=== PATIENT | female | born 1945 | race Caucasian/White ===

== ENCOUNTER 2018-08-17 02:22 | Emergency (ER) | payer MEDICARE, BC, MEDICAID ==
--- NOTE | 2018-08-17 03:14 | EDM.PDOC ---
ED HPI GENERAL MEDICAL PROBLEM - General Chief Complaint: Chest Pain Stated Complaint: chest pain Time Seen by Provider: 08/17/18 02:56 Source of Information: Reports: Patient History Limitations: Reports: No Limitations - History of Present Illness INITIAL COMMENTS - FREE TEXT/NARRATIVE: Patient presents with intermittent chest pain over the last 8+ hours. States was sleeping in her recliner at [facility] when pain awoke her. Pain is located across chest and upper back and radiated down her left arm. She states she had this earlier in the day but didn't alert nursing staff. Had the pain at midnight, was given TUMS and that helped for a short time. Again occurred 2 hours later. Blood pressure elevated at the home, here was normal on admission. Also notes midepigastric discomfort. She reports that she did have to take a week of Lasix due to edema in her legs, that is now improved. Patient denies shortness of breath at present but admits when she had stronger pains, "it took my breath away". No diaphoresis. Onset: Sudden Duration: Waxing/Waning Location: Reports: Chest Quality: Reports: Sharp, Stabbing Severity: Moderate (now improved after the tylenol and nitro) Improves with: Reports: Medication Associated Symptoms: Reports: Chest Pain, Shortness of Breath. Denies: Cough, Diaphoresis, Fever/Chills, Loss of Appetite, Malaise, Nausea/Vomiting, Weakness Treatments DISABILITIES SERVICES OFFICER: Reports: Aspirin, Nitroglycerin Chest Pain Score (Numeric/FACES): 5 - Related Data Allergies Allergy/AdvReac Type Severity Reaction Status Date / Time acetazolamide Allergy Cannot Verified 08/17/18 02:56 [From Diamox Sequels] Remember benzalkonium chloride Allergy Cannot Verified 08/17/18 02:56 [From Travatan] Remember Penicillins Allergy Cannot Verified 08/17/18 02:56 Remember quetiapine fumarate Allergy Cannot Verified 08/17/18 02:56 [From Seroquel] Remember sulfamethoxazole Allergy Cannot Verified 08/17/18 02:56 Remember travoprost [From Travatan] Allergy Cannot Verified 08/17/18 02:56 Remember trimethoprim Allergy Cannot Verified 08/17/18 02:56 Remember Home Meds: Home Meds ARIPiprazole [Abilify] 20 mg PO BEDTIME 07/20/13 [History] Acetaminophen [Tylenol Arthritis Pain] 650 mg PO Q6H PRN 07/20/13 [History] Ferrous Sulfate 325 mg PO DAILY 07/20/13 [History] Levothyroxine 150 mcg PO DAILY 07/20/13 [History] Polyethylene Glycol 3350 [MiraLAX] 17 gm PO Q48H 07/20/13 [History] buPROPion HCl [buPROPion SR] 300 mg PO BID 07/20/13 [History] Calcium Carbonate [Tums] 1,000 mg PO QID PRN 02/26/14 [History] Sennosides/Docusate Sodium [Stool Softener-Laxative] 1 tab PO DAILY 02/26/14 [ History] lamoTRIgine [Lamictal] 200 mg PO DAILY 02/26/14 [History] ALPRAZolam [Alprazolam] 0.5 mg PO QID 08/17/18 [History] Acetaminophen [Tylenol Extra Strength] 500 mg PO BID 08/17/18 [History] Carboxymethylcellulose Sodium [Refresh Tears 0.5%] 1 drop EYEBOTH DAILY [History] Clindamycin HCl 600 mg PO ASDIRECTED PRN MDD prior to dental procedures [History] Cyanocobalamin (Vitamin B-12) [Cyanocobalamin Injection] 1,000 mcg IM Q30D 08/17 [History] Dextran 70/Hypromellose [Artificial Tears] 1 - 2 drop EYEBOTH ASDIRECTED PRN [History] Fluticasone Propionate [Flovent] 50 mcg INH BEDTIME 08/17/18 [History] Isosorbide Mononitrate [Isosorbide Mononitrate ER] 30 mg PO DAILY 08/17/18 [ History] Losartan Potassium [Cozaar] 100 mg PO DAILY 08/17/18 [History] Magnesium Hydroxide [Milk of Magnesia] 30 ml PO DAILY PRN 08/17/18 [History] Menthol [Biofreeze] 1 applic TOP QID PRN 08/17/18 [History] Metoprolol Succinate [Toprol Xl] 100 mg PO DAILY 08/17/18 [History] Sodium Chloride 1 gm PO DAILY 08/17/18 [History] amLODIPine Besylate [Amlodipine Besylate] 10 mg PO DAILY 08/17/18 [History] buPROPion HCl [Wellbutrin Xl] 150 mg PO DAILY 08/17/18 [History] Past Medical History Other Genitourinary History: pt has a constant Arroyo - Infectious Disease History Infectious Disease History: Reports: MRSA Social & Family History - Living Situation & Occupation Living situation: Reports: Extended Care Facility Occupation: Disabled ED ROS GENERAL - Review of Systems Review Of Systems: See Below Constitutional: Denies: Fever, Chills, Malaise, Weakness, Decreased Appetite HEENT: Reports: Rhinitis. Denies: Ear Pain, Sinus Problem, Throat Pain Respiratory: Reports: Shortness of Breath. Denies: Wheezing, Cough Cardiovascular: Reports: Chest Pain, Edema. Denies: Lightheadedness Endocrine: Denies: Fatigue GI/Abdominal: Denies: Abdominal Pain, Nausea, Vomiting : Reports: Other (has catheter) Musculoskeletal: Reports: No Symptoms Skin: Reports: No Symptoms Neurological: Reports: No Symptoms ED EXAM, GENERAL - Physical Exam Exam: See Below Exam Limited By: No Limitations General Appearance: Alert, WD/WN, No Apparent Distress Ears: Normal External Exam, Normal TMs Nose: Normal Inspection, Normal Mucosa, No Blood Throat/Mouth: Normal Inspection, Normal Oropharynx Head: Normocephalic Neck: Normal Inspection, Supple, Non-Tender Respiratory/Chest: No Respiratory Distress, Lungs Clear, Normal Breath Sounds Cardiovascular: Regular Rate, Rhythm GI/Abdominal: Normal Bowel Sounds, Soft, Tender (midepigastric region) Extremities: Normal Inspection, Pedal Edema (1+ pitting edema in legs) Neurological: Alert, Oriented Skin Exam: Warm, Dry Course - Vital Signs Last Recorded V/S: Last Vital Signs Temp 99 F 08/17/18 09:39 Pulse 91 08/17/18 09:39 Resp 16 08/17/18 09:39 BP 170/70 H 08/17/18 09:39 Pulse Ox 97 08/17/18 09:39 - Orders/Labs/Meds Orders: Active Orders 24 hr Category Date Time Status EKG Documentation Completion [RC] STAT Care 08/17/18 02:23 Active Chest 1V Frontal [CR] Stat Exams 08/17/18 02:23 Taken Sodium Chloride 0.9% [Normal Saline] 1,000 ml Med 08/17/18 03:30 Active IV ASDIRECTED EKG 12 Lead [EK] Routine Ther 08/17/18 07:00 Ordered Medication Orders Sodium Chloride (Normal Saline) 1,000 mls @ 125 mls/hr IV ASDIRECTED BRITTNEY Last Admin: 08/17/18 04:05 Dose: 125 mls/hr Labs: Laboratory Tests 08/17/18 08/17/18 08/17/18 Range/Units 02:23 02:23 02:30 WBC 5.9 (5.0-10.0) 10^3/uL RBC 3.79 L (4.00-5.50) 10^6/uL Hgb 11.6 L (12.0-16.0) g/dL Hct 33.1 L (37.0-47.0) % MCV 87.3 (82.0-94.0) fL MCH 30.6 (27.0-32.0) pg MCHC 35.0 (33.0-38.0) g/dL RDW Coeff of [place] 12.9 (11.0-15.0) % Plt Count 288 (150-400) 10^3/uL Neut % (Auto) 73.6 (35-85) % Lymph % (Auto) 14.8 (10-55) % [place] % (Auto) 7.8 (0-16) % Eos % (Auto) 3.1 (0-5) % Baso % (Auto) 0.7 (0-3) % Neut # (Auto) 4.34 (1.80-7.00) 10^3/uL Lymph # (Auto) 0.87 L (1.00-4.80) 10^3/uL [place] # (Auto) 0.46 (0.00-0.80) 10^3/uL Eos # (Auto) 0.18 (0.00-0.45) 10^3/uL Baso # (Auto) 0.04 10^3/uL PT 9.7 (9.7-12.3) SEC INR 0.94 (0.92-1.18) Sodium 127 L (136-145) mEq/L Potassium 4.4 (3.5-5.0) mEq/L Chloride 90 L (98-106) mEq/L Carbon Dioxide 29 (21-32) mmol/L BUN 15 (7-18) mg/dL Creatinine 1.2 H (0.6-1.0) mg/dL Est Cr Clr Drug Dosing 41.81 mL/min Estimated GFR (MDRD) 44 L (>=60) mL/min Glucose 126 H (75-99) mg/dL Calcium 9.3 (8.4-10.1) mg/dL Lactate Dehydrogenase 143 (100-190) U/L Creatine Kinase 81 (21-215) U/L Troponin I < 0.017 (0.00-0.06) ng/mL NT-Pro-B Natriuret Pep 172 (0-1000) pg/mL 08/17/18 Range/Units 07:00 WBC (5.0-10.0) 10^3/uL RBC (4.00-5.50) 10^6/uL Hgb (12.0-16.0) g/dL Hct (37.0-47.0) % MCV (82.0-94.0) fL MCH (27.0-32.0) pg MCHC (33.0-38.0) g/dL RDW Coeff of [place] (11.0-15.0) % Plt Count (150-400) 10^3/uL Neut % (Auto) (35-85) % Lymph % (Auto) (10-55) % [place] % (Auto) (0-16) % Eos % (Auto) (0-5) % Baso % (Auto) (0-3) % Neut # (Auto) (1.80-7.00) 10^3/uL Lymph # (Auto) (1.00-4.80) 10^3/uL [place] # (Auto) (0.00-0.80) 10^3/uL Eos # (Auto) (0.00-0.45) 10^3/uL Baso # (Auto) 10^3/uL PT (9.7-12.3) SEC INR (0.92-1.18) Sodium 127 L (136-145) mEq/L Potassium 4.8 (3.5-5.0) mEq/L Chloride 92 L (98-106) mEq/L Carbon Dioxide 28 (21-32) mmol/L BUN 12 (7-18) mg/dL Creatinine 1.1 H (0.6-1.0) mg/dL Est Cr Clr Drug Dosing 45.62 mL/min Estimated GFR (MDRD) 49 L (>=60) mL/min Glucose 118 H (75-99) mg/dL Calcium 8.9 (8.4-10.1) mg/dL Lactate Dehydrogenase (100-190) U/L Creatine Kinase (21-215) U/L Troponin I < 0.017 (0.00-0.06) ng/mL NT-Pro-B Natriuret Pep (0-1000) pg/mL Meds: Medications Generic Name Dose Route Start Last Admin Trade Name Jennifer PRN Reason Stop Dose Admin Sodium Chloride 1,000 mls @ 125 mls/hr 08/17/18 03:30 08/17/18 04:05 Normal Saline IV 125 mls/hr ASDIRECTED [facility] Administration - Re-Assessments/Exams Free Text/Narrative Re-Assessment/Exam: 08/17/18 03:26 Sodium low at 127 but all other labs stable. Will repeat troponin, sodium and EKG in 4 hours. 08/17/18 09:46 Labs, EKG unchanged. will discharge back to the assisted. Blood pressure higher now, needs am blood pressure meds, will have her get those on return to the assisted. Start Omeprazole 20 mg daily Departure - Departure Time of Disposition: 09:41 Disposition: Home, Self-Care 01 Condition: Good Clinical Impression: Atypical chest pain Forms: ED Department Discharge Additional Instructions: 1. Rest 2. Repeat BMP in 3 days 3. Start Omeprazole 20 mg daily 4. Needs AM meds 5. Follow up if ongoing concerns. - My Orders Last 24 Hours: My Active Orders 08/17/18 02:23 EKG Documentation Completion [RC] STAT Chest 1V Frontal [CR] Stat 08/17/18 03:30 Sodium Chloride 0.9% [Normal Saline] 1,000 ml IV ASDIRECTED 08/17/18 07:00 EKG 12 Lead [EK] Routine - Assessment/Plan Last 24 Hours: My Active Orders 08/17/18 02:23 EKG Documentation Completion [RC] STAT Chest 1V Frontal [CR] Stat 08/17/18 03:30 Sodium Chloride 0.9% [Normal Saline] 1,000 ml IV ASDIRECTED 08/17/18 07:00 EKG 12 Lead [EK] Routine
[2018-08-17 03:23] LABS: CHLORIDE,CL 90 mEq/L (98-106); SODIUM,NA 127 mEq/L (136-145)
[2018-08-17] MEDS ORDERED: Sodium Chloride 0.9% 1,000 ML IV SCH (03:30)
[2018-08-17 08:05] LABS: CHLORIDE,CL 92 mEq/L (98-106); SODIUM,NA 127 mEq/L (136-145)
[2018-08-17 09:39] VITALS: BP 170/70
== END 2018-08-17 10:12 | disposition home or self-care (01) ==
LOC: CC.ED 02:22
DX: R07.89 Other chest pain (principal); Z88.8 Allergy status to other drugs, medicaments and biological substances; Z79.899 Other long term (current) drug therapy; Z88.0 Allergy status to penicillin; Z88.2 Allergy status to sulfonamides
CPT/HCPCS: 36415; 71045; 80048; 82550; 83615; 83880; 84484; 85025; 85610; 93005; 96365; 96366; 99285-25; J7030

== ENCOUNTER 2019-01-03 02:08 | Observation (INO) | payer MEDICARE, BC, MEDICAID ==
[2019-01-03] MEDS ORDERED: Aspirin 81 MG Tab.Chew PO ONE (02:41)
[2019-01-03] MEDS ORDERED: Ondansetron 4 MG Tab.DIS PO ONE (02:47)
--- NOTE | 2019-01-03 02:50 | EDM.PDOC ---
ED HPI GENERAL MEDICAL PROBLEM - General Chief Complaint: Gastrointestinal Problem Stated Complaint: vomiting, epigastric pain, high BP Time Seen by Provider: 01/03/19 02:32 Source of Information: Reports: Patient History Limitations: Reports: No Limitations - History of Present Illness INITIAL COMMENTS - FREE TEXT/NARRATIVE: This patient is a 73 year old female that presents to the ER from the senior care. Patient reports that about 2 1/2 hour ago having chest pressure. She reports the pressure went into both arms, into her mid back, she became short of breath, nauseated, and then vomited 4 times. She reports that the vomiting has decreased the pressure in her chest and arms to a 6/10 pressure scale. Patient reports that she thinks it is acid reflux. Patient reports that she has had this pain before and had a stress test that was normal per patient. The patient has hx of HTN. I reviewed per previous stress test FROM august 29, 2018; That shows ST segment changes, but no ischemia. Onset: Today Onset Date: 01/03/19 Onset Time: 00:00 Duration: Hour(s): (2 1/2 hours), Improving Location: Reports: Chest, Abdomen Quality: Reports: Pressure Severity: Moderate Improves with: Reports: Other (vomiting) Associated Symptoms: Reports: Chest Pain, Nausea/Vomiting, Shortness of Breath. Denies: Confusion, Cough, cough w sputum, Diaphoresis, Fever/Chills, Headaches , Loss of Appetite, Malaise, Rash, Seizure, Syncope, Weakness Upper Epigastric Pain Score (Numeric/FACES): 6 - Related Data Allergies Allergy/AdvReac Type Severity Reaction Status Date / Time acetazolamide Allergy Cannot Verified 01/03/19 02:11 [From Diamox Sequels] Remember benzalkonium chloride Allergy Cannot Verified 01/03/19 02:11 [From Travatan] Remember Penicillins Allergy Cannot Verified 01/03/19 02:11 Remember quetiapine fumarate Allergy Cannot Verified 01/03/19 02:11 [From Seroquel] Remember sulfamethoxazole Allergy Cannot Verified 01/03/19 02:11 Remember travoprost [From Travatan] Allergy Cannot Verified 01/03/19 02:11 Remember trimethoprim Allergy Cannot Verified 01/03/19 02:11 Remember Septra tabs Allergy Cannot Uncoded 01/03/19 02:11 Remember Home Meds: Home Meds ARIPiprazole [Abilify] 20 mg PO BEDTIME 07/20/13 [History] Acetaminophen [Tylenol Arthritis Pain] 650 mg PO Q6H PRN 07/20/13 [History] Ferrous Sulfate 325 mg PO DAILY 07/20/13 [History] Levothyroxine 150 mcg PO DAILY 07/20/13 [History] Polyethylene Glycol 3350 [MiraLAX] 17 gm PO Q48H 07/20/13 [History] buPROPion HCl [buPROPion SR] 300 mg PO BID 07/20/13 [History] Calcium Carbonate [Tums] 1,000 mg PO QID PRN 02/26/14 [History] Sennosides/Docusate Sodium [Stool Softener-Laxative] 1 tab PO DAILY 02/26/14 [ History] lamoTRIgine [Lamictal] 200 mg PO DAILY 02/26/14 [History] ALPRAZolam [Alprazolam] 0.5 mg PO QID 08/17/18 [History] Acetaminophen [Tylenol Extra Strength] 500 mg PO BID 08/17/18 [History] Carboxymethylcellulose Sodium [Refresh Tears 0.5%] 1 drop EYEBOTH DAILY [History] Clindamycin HCl 600 mg PO ASDIRECTED PRN MDD prior to dental procedures [History] Cyanocobalamin (Vitamin B-12) [Cyanocobalamin Injection] 1,000 mcg IM Q30D 08/17 [History] Dextran 70/Hypromellose [Artificial Tears] 1 - 2 drop EYEBOTH ASDIRECTED PRN [History] Fluticasone Propionate [Flovent] 50 mcg INH BEDTIME 08/17/18 [History] Isosorbide Mononitrate [Isosorbide Mononitrate ER] 30 mg PO DAILY 08/17/18 [ History] Losartan Potassium [Cozaar] 100 mg PO DAILY 08/17/18 [History] Magnesium Hydroxide [Milk of Magnesia] 30 ml PO DAILY PRN 08/17/18 [History] Menthol [Biofreeze] 1 applic TOP QID PRN 08/17/18 [History] Metoprolol Succinate [Toprol Xl] 100 mg PO DAILY 08/17/18 [History] Sodium Chloride 1 gm PO DAILY 08/17/18 [History] amLODIPine Besylate [Amlodipine Besylate] 10 mg PO DAILY 08/17/18 [History] buPROPion HCl [Wellbutrin Xl] 150 mg PO DAILY 08/17/18 [History] Multivitamin with Iron [Multivitamins with Iron] 1 ea PO DAILY 08/28/18 [History ] Past Medical History HEENT History: Reports: Allergic Rhinitis, Glaucoma, Other (See Below) Other HEENT History: dry eye syndrome of bilateral lacrimal glands, bilateral vitreous degeneration Cardiovascular History: Reports: Afib, Blood Clots/VTE/DVT, Hypertension Gastrointestinal History: Reports: Chronic Constipation Genitourinary History: Reports: Other (See Below) Other Genitourinary History: pt has a constant Arroyo 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: Musculoskeletal History: Reports: Osteoarthritis Psychiatric History: Reports: Anxiety, Bipolar, Depression, Other (See Below) Other Psychiatric History: somatization disorder, personality disorder, social phobia, schizoaffective disorder, bipolar type Endocrine/Metabolic History: Reports: Diabetes, Type II, Hypothyroidism, Obesity /BMI 30+, Other (See Below) Other Endocrine/Metabolic History: syndrome of inappropriate secretion of antidiuretic hormone Hematologic History: Reports: Anemia, Iron Deficiency - Infectious Disease History Infectious Disease History: Reports: MRSA - Past Surgical History HEENT Surgical History: Reports: None Cardiovascular Surgical History: Reports: None GI Surgical History: Reports: None Endocrine Surgical History: Reports: None Musculoskeletal Surgical History: Reports: Knee Replacement Social & Family History - Family History Family Medical History: Noncontributory - Tobacco Use Smoking Status *Q: Never Smoker - Caffeine Use Caffeine Use: Reports: Coffee - Recreational Drug Use Recreational Drug Use: No - Living Situation & Occupation Living situation: Reports: Extended Care Facility Occupation: Disabled ED ROS GENERAL - Review of Systems Review Of Systems: See Below Constitutional: Reports: No Symptoms HEENT: Reports: No Symptoms Respiratory: Reports: Shortness of Breath. Denies: Wheezing, Pleuritic Chest Pain, Cough, Sputum, Hemoptysis Cardiovascular: Reports: Chest Pain. Denies: Dyspnea on Exertion, Edema, Lightheadedness, Palpitations, Syncope Endocrine: Reports: No Symptoms GI/Abdominal: Reports: Abdominal Pain, Nausea, Vomiting. Denies: Constipation, Diarrhea : Reports: No Symptoms Musculoskeletal: Reports: Back Pain Skin: Reports: No Symptoms Neurological: Reports: No Symptoms Psychiatric: Reports: No Symptoms Hematologic/Lymphatic: Reports: No Symptoms Immunologic: Reports: No Symptoms ED EXAM, GI/ABD - Physical Exam Exam: See Below Exam Limited By: No Limitations General Appearance: Alert, WD/WN, No Apparent Distress, Obese. No: Active Emesis Eyes: Bilateral: Normal Appearance Ears: Normal External Exam, Normal Canal, Hearing Grossly Normal, Normal TMs Nose: Normal Inspection, Normal Mucosa, No Blood Throat/Mouth: Normal Inspection, Normal Lips, Normal Teeth, Normal Gums, Normal Oropharynx, Normal Voice, No Airway Compromise Head: Atraumatic, Normocephalic Neck: Normal Inspection, Supple, Non-Tender, Full Range of Motion Respiratory/Chest: No Respiratory Distress, Lungs Clear, Normal Breath Sounds, No Accessory Muscle Use, Chest Non-Tender Cardiovascular: Normal Peripheral Pulses, Regular Rate, Rhythm, No Edema, No Gallop, No JVD, No Murmur, No Rub GI/Abdominal Exam: Normal Bowel Sounds, Soft, No Organomegaly, No Distention, No Abnormal Bruit, No Mass, Pelvis Stable, Tender (epigastric). No: Distended, Guarding, Rigid, Rebound, Mass (Female) Exam: Deferred Rectal (Female) Exam: Deferred Back Exam: Normal Inspection, Full Range of Motion. No: CVA Tenderness (L), CVA Tenderness (R) Extremities: Normal Inspection, Normal Range of Motion, Non-Tender, No Pedal Edema, Normal Capillary Refill Neurological: Alert, Oriented, Normal Cognition, Other (wheelchair chronic) Psychiatric: Normal Affect, Normal Mood Skin Exam: Warm, Dry, Intact, Normal Color, No Rash Lymphatic: No Adenopathy EKG INTERPRETATION EKG Date: 01/03/19 Time: 02:21 Rate (Beats/Min): 91 ST-T: Depressed QT: Prolonged Comparison: No Change (August 2018) Course - Vital Signs Last Recorded V/S: Last Vital Signs Temp 98.4 F 01/03/19 07:49 Pulse 83 01/03/19 07:49 Resp 18 01/03/19 07:49 BP 130/62 01/03/19 07:49 Pulse Ox 97 01/03/19 07:49 - Orders/Labs/Meds Orders: Active Orders 24 hr Category Date Time Status EKG Documentation Completion [RC] STAT Care 01/03/19 02:29 Active Abdomen Pelvis w Cont [CT] Stat Exams 01/03/19 07:59 Ordered Chest 1V Frontal [CR] Stat Exams 01/03/19 02:29 Taken Labs: Laboratory Tests 01/03/19 01/03/19 01/03/19 Range/Units 02:48 02:48 02:48 WBC 6.5 (5.0-10.0) 10^3/uL RBC 3.72 L (4.00-5.50) 10^6/uL Hgb 11.2 L (12.0-16.0) g/dL Hct 33.2 L (37.0-47.0) % MCV 89.2 (82.0-94.0) fL MCH 30.1 (27.0-32.0) pg MCHC 33.7 (33.0-38.0) g/dL RDW Coeff of [place] 13.3 (11.0-15.0) % Plt Count 299 (150-400) 10^3/uL Neut % (Auto) 81.3 (35-85) % Lymph % (Auto) 9.0 L (10-55) % [place] % (Auto) 6.3 (0-16) % Eos % (Auto) 2.8 (0-5) % Baso % (Auto) 0.6 (0-3) % Neut # (Auto) 5.26 (1.80-7.00) 10^3/uL Lymph # (Auto) 0.58 L (1.00-4.80) 10^3/uL [place] # (Auto) 0.41 (0.00-0.80) 10^3/uL Eos # (Auto) 0.18 (0.00-0.45) 10^3/uL Baso # (Auto) 0.04 10^3/uL PT 8.9 L (9.7-12.3) SEC INR 0.86 L (0.92-1.18) APTT 29.3 (23.2-32.3) SEC Sodium (136-145) mEq/L Potassium (3.5-5.0) mEq/L Chloride (98-106) mEq/L Carbon Dioxide (21-32) mmol/L BUN (7-18) mg/dL Creatinine (0.6-1.0) mg/dL Est Cr Clr Drug Dosing mL/min Estimated GFR (MDRD) (>=60) mL/min Glucose (75-99) mg/dL Calcium (8.4-10.1) mg/dL Total Bilirubin (0.0-1.0) mg/dL AST (15-37) U/L ALT (12-78) U/L Alkaline Phosphatase (46-116) U/L Lactate Dehydrogenase 134 (100-190) U/L Creatine Kinase 41 (21-215) U/L Troponin I < 0.017 (0.00-0.06) ng/mL NT-Pro-B Natriuret Pep (0-1000) pg/mL Total Protein (6.4-8.2) g/dL Albumin (3.4-5.0) g/dL Amylase (25-115) U/L Lipase (73-393) U/L 01/03/19 01/03/19 01/03/19 Range/Units 02:48 02:48 06:50 WBC (5.0-10.0) 10^3/uL RBC (4.00-5.50) 10^6/uL Hgb (12.0-16.0) g/dL Hct (37.0-47.0) % MCV (82.0-94.0) fL MCH (27.0-32.0) pg MCHC (33.0-38.0) g/dL RDW Coeff of [place] (11.0-15.0) % Plt Count (150-400) 10^3/uL Neut % (Auto) (35-85) % Lymph % (Auto) (10-55) % [place] % (Auto) (0-16) % Eos % (Auto) (0-5) % Baso % (Auto) (0-3) % Neut # (Auto) (1.80-7.00) 10^3/uL Lymph # (Auto) (1.00-4.80) 10^3/uL [place] # (Auto) (0.00-0.80) 10^3/uL Eos # (Auto) (0.00-0.45) 10^3/uL Baso # (Auto) 10^3/uL PT (9.7-12.3) SEC INR (0.92-1.18) APTT (23.2-32.3) SEC Sodium 129 L (136-145) mEq/L Potassium 4.4 (3.5-5.0) mEq/L Chloride 93 L (98-106) mEq/L Carbon Dioxide 26 (21-32) mmol/L BUN 17 (7-18) mg/dL Creatinine 1.0 (0.6-1.0) mg/dL Est Cr Clr Drug Dosing 49.45 mL/min Estimated GFR (MDRD) 55 L (>=60) mL/min Glucose 157 H D (75-99) mg/dL Calcium 9.3 (8.4-10.1) mg/dL Total Bilirubin 0.2 (0.0-1.0) mg/dL AST 9 L (15-37) U/L ALT 12 (12-78) U/L Alkaline Phosphatase 91 (46-116) U/L Lactate Dehydrogenase (100-190) U/L Creatine Kinase (21-215) U/L Troponin I 0.040 (0.00-0.06) ng/mL NT-Pro-B Natriuret Pep 145 (0-1000) pg/mL Total Protein 7.6 (6.4-8.2) g/dL Albumin 3.5 (3.4-5.0) g/dL Amylase 43 (25-115) U/L Lipase 172 (73-393) U/L Meds: Medications Discontinued Medications Generic Name Dose Route Start Last Admin Trade Name Freq PRN Reason Stop Dose Admin Aspirin 324 mg 01/03/19 02:41 01/03/19 02:53 Aspirin PO 01/03/19 02:42 324 mg ONETIME ONE Administration Al Hydroxide/Mg Hydroxide 30 0 ml 01/03/19 03:13 01/03/19 04:33 ml/ Lidocaine HCl 15 ml PO 01/03/19 03:14 30 ml ONETIME ONE Administration Famotidine 20 mg 01/03/19 07:58 Pepcid IVPUSH 01/03/19 07:59 ONETIME ONE Morphine Sulfate 5 mg 01/03/19 07:58 Morphine IVPUSH 01/03/19 07:59 ONETIME ONE Ondansetron HCl 4 mg 01/03/19 02:47 01/03/19 02:55 Zofran Odt PO 01/03/19 02:48 4 mg ONETIME ONE Administration Ondansetron HCl 4 mg 01/03/19 07:58 Zofran IVPKADEN 01/03/19 07:59 NOW STA - Radiology Interpretation Free Text/Narrative:: CXR: Lungs hyperinflated. cardiac sillhouette in place. no infiltrates. - Re-Assessments/Exams Free Text/Narrative Re-Assessment/Exam: 01/03/19 03:14 Initial troponin is negative. Will give GI Co[place] to patient, and redraw repeat troponin in 3 hours. 01/03/19 0510 Patient is resting quietly without complaint. 01/03/19 08:04 The patient troponin repeat is still negative. The patient is sitting up in chair eating toast without difficulty or vomiting. Patient reports that her pain is still a 6/10. She reports that the pain is pressure. She reports she does still have some pressure into her chest/epigastric area, but now more so in her abdomen generalized. The patient reports that it feels like gas pains. Patient reports that she is passing a lot of gas, and had a BM yesterday. The patient reports that she does have nausea, but not as bad as initial presentation. The patient pain complaint has changed from her initial arrival. The patient has chronic low sodium. Patient is now tender over tithe RUQ, RLQ abdomen. I have ordered pain medication and nausea mediation for patient. I will ct her abd/pelvis. I will admit this patient observation due to her pain, complaint change, and repeat a troponin again this morning. Patient agrees with this plan. Departure - Departure Time of Disposition: 08:08 Disposition: Refer to Observation Condition: Fair Clinical Impression: Abdominal pain, Atypical chest pain - Discharge Information *PRESCRIPTION DRUG MONITORING PROGRAM REVIEWED*: Not Applicable *COPY OF PRESCRIPTION DRUG MONITORING REPORT IN PATIENT ANGELO: Not Applicable Referrals: David Armendariz MD [Primary Care Provider] - Forms: ED Department Discharge - My Orders Last 24 Hours: My Active Orders 01/03/19 02:29 EKG Documentation Completion [RC] STAT Chest 1V Frontal [CR] Stat 01/03/19 07:59 Abdomen Pelvis w Cont [CT] Stat - Assessment/Plan Last 24 Hours: My Active Orders 01/03/19 02:29 EKG Documentation Completion [RC] STAT Chest 1V Frontal [CR] Stat 01/03/19 07:59 Abdomen Pelvis w Cont [CT] Stat Plan: PLEASE SEE RN NOTE FOR PFSH PLEASE USE ER H&P ADMIT H&P.
[2019-01-03] MEDS ORDERED: Alum Hydrox/Mag Hydrox/Simeth 30 ML, Lidocaine 2% 15 ML PO ONE ×2 (03:13)
[2019-01-03] MEDS ORDERED: Famotidine 20 MG/2 ML SDV IVPUSH ONE (07:58)
[2019-01-03] MEDS ORDERED: Morphine 10 MG/ML Syringe IVPUSH ONE (07:58)
[2019-01-03] MEDS ORDERED: Ondansetron 4 MG/2 ML SDV IVPUSH STA (07:58)
[2019-01-03] MEDS ORDERED: Iopamidol 755 Mg/ML 200 ML Bottle IV ONE (09:11)
[2019-01-03] MEDS ORDERED: Enoxaparin 40 MG/0.4 ML Syringe SUBCUT SCH (13:00)
[2019-01-03] MEDS ORDERED: Acetaminophen 325 MG Tab PO PRN (13:01)
[2019-01-03] MEDS ORDERED: Morphine 2 MG/ML Syringe IVPUSH PRN (13:01)
[2019-01-03] MEDS ORDERED: Sodium Chloride 0.9% 1,000 ML IV SCH (13:01)
[2019-01-03] MEDS ORDERED: Non-Formulary Medication 1 Each (Acetaminophen [Tylenol Arthritis Pain] 650 MG) PO PRN (13:01)
[2019-01-03] MEDS ORDERED: Non-Formulary Medication 1 Each (Menthol [Biofreeze] 1 APPLIC) TOP PRN (13:01)
[2019-01-03] MEDS ORDERED: Ibuprofen 200 MG Tab PO PRN (13:01)
[2019-01-03] MEDS ORDERED: Ondansetron 4 MG Tab.DIS PO PRN (13:01)
[2019-01-03] MEDS ORDERED: Calcium Carbonate 500 MG Tab.Chew PO PRN (13:15)
[2019-01-03] MEDS ORDERED: Magnesium Hydroxide 400 MG/5 ML Susp 30 ML Cup PO PRN (13:30)
[2019-01-03] MEDS: ALPRAZOLAM 0.5 MG PO SCH ×3 (14:03→19:32)
[2019-01-03] MEDS ORDERED: cefTRIAXone 1 GM Vial IVPUSH SCH (15:00)
[2019-01-03] MEDS ORDERED: Sodium Chloride 0.9% 500 ML IV ONE (15:00)
--- NOTE | 2019-01-03 17:19 | PCM.SN ---
- Free Text/Narrative Note: 01/03/19 1000 Urine was obtained after patient admit. She is Nitrite positive. I will treat her for UTI. Her troponin were in indeterminant range. No ekg changes. Pain has resolved. Negative stress test in August. Will keep admitted for UTI. Plan, if patient is pain free tomorrow, can discharge tomorrow. 01/03/19 1830 I was called by JOEY Lopez that the repeat troponin on patient had increased. Troponin still in indeterminant range, but has increased. I was now informed the patient is having chest pain that has returned level 3/10. This is from an earlier lab draw today. I have ordered another troponin now and EKG. Went to seen patient again now. She is complaining that she again is having chest pressure and mid back pressure. She denies shortness of breath or nausea currently. I have ordered nitro for this patient as well. I will obtain EKG and troponin and call cardiology to consult about this patient. I will also review with cardiology her negative stress test in August. I was also just informed that the patient at the [facility] is on a strict fluid restriction due to history in the past with fluid overload and sodium issues. I stopped her fluids and placed her on a fluid restriction. 01/03/19 2030 I have received a repeat troponin back on this patient from her now complaint of chest pressure. Patient troponin is still higher than her initial presentation and repeat. It is in indeterminant range again. EKG unchanged rate of 76. [facility] elevated troponins that are increased compared to her admit and repeat initial. I spoke to Dr. Batista. She has accepted the patient. I then spoke to patient guardian who has called. I explained about patient complaints and troponin labs and how they have increased, but remain in indeterminant range. Will transfer the patient to [facility]. The risk verse benefits explained. The risk for transfer are MVC, worsening of chest pain, . The risk of staying in [place] is , worsening of condition, continued chest pain. The benefits of transfer are desktop specialist, cardiac intervention if needed, stress test, and angio capabilities. The benefit of staying in [place] is close to home.
[2019-01-03] MEDS ORDERED: Nitroglycerin 0.4 MG Tab.SL SL PRN (19:12)
[2019-01-03] MEDS ORDERED: BUPROPION HCL 300 MG PO SCH (20:00)
[2019-01-03] MEDS ORDERED: Acetaminophen 500 MG Tab PO SCH (20:00)
[2019-01-03] MEDS ORDERED: Non-Formulary Medication 1 Each (Fluticasone Propionate [Flovent] 50 MCG) INH SCH (20:00)
[2019-01-03] MEDS ORDERED: Non-Formulary Medication 1 Each (Aripiprazole [Abilify] 20 MG) PO SCH (20:00)
[2019-01-03 21:11] VITALS: BP 156/65
[2019-01-04] MEDS ORDERED: LEVOTHYROXINE 150 MCG PO SCH (07:00)
[2019-01-04] MEDS ORDERED: LAMOTRIGINE 100 MG PO SCH (08:00)
[2019-01-04] MEDS ORDERED: Non-Formulary Medication 1 Each (Carboxymethylcellulose Sodium [Refresh Tears 0.5%] 1 DROP EYEBOTH SCH (08:00)
[2019-01-04] MEDS ORDERED: [UNRECOGNIZED DRUG - OTHER] PO SCH (08:00)
[2019-01-04] MEDS ORDERED: Polyethylene Glycol 3350 Powder 17 GM Packet PO SCH (08:00)
[2019-01-04] MEDS ORDERED: Ferrous Sulfate 324 MG Tab.EC PO SCH (08:00)
[2019-01-04] MEDS ORDERED: Non-Formulary Medication 1 Each (Bupropion Hcl [Wellbutrin Xl] 150 MG) PO SCH (08:00)
[2019-01-04] MEDS ORDERED: Metoprolol Succinate 100 MG Tab.ER**OWN MED PO SCH (08:00)
[2019-01-04] MEDS ORDERED: Multivitamin Tab PO SCH (08:00)
[2019-01-04] MEDS ORDERED: SODIUM CHLORIDE 1 GM PO SCH (08:00)
[2019-01-04] MEDS ORDERED: amLODIPine 10 MG Tab**OWN MED PO SCH (08:00)
[2019-01-04] MEDS ORDERED: Isosorbide Mononitrate 30 MG Tab.ER**OWN MED PO SCH (08:00)
[2019-01-04] MEDS ORDERED: Losartan 100 MG Tab**OWN MED PO SCH (08:00)
[2019-01-11] MEDS ORDERED: Cyanocobalamin (Vitamin B12) 1,000 MCG/ML SDV IM SCH (09:00)
== END 2019-01-03 22:15 ==
LOC: CC.ED 02:08 → CC.MS 08:05 → UNDOADMOB 08:05 → OBSVTOIN 08:05 → INTOOBSV 08:05 → CC.MS 09:11 → UNDODISOB 22:15
PROVIDERS: ADMIT Nurse Practitioner; ATTEND Nurse Practitioner
DX: R07.89 Other chest pain (principal); R11.2 Nausea with vomiting, unspecified; R10.84 Generalized abdominal pain; R06.02 Shortness of breath; R79.89 Other specified abnormal findings of blood chemistry; N39.0 Urinary tract infection, site not specified; I10 Essential (primary) hypertension; E11.9 Type 2 diabetes mellitus without complications; E03.9 Hypothyroidism, unspecified; Z88.0 Allergy status to penicillin; Z88.8 Allergy status to other drugs, medicaments and biological substances; Z79.51 Long term (current) use of inhaled steroids; Z79.899 Other long term (current) drug therapy
CPT/HCPCS: 36415; 51701; 71045; 74177; 80053; 81001; 82150; 82550; 83615; 83690; 83880; 84484; 85025; 85610; 85730; 86140; 87086; 87186; 93005; 96361; 96372; 96374; 96375; 99284-25; A9270-GY; G0378; J0696; J1650; J2270; J2405; J3490; J7030; J7040; Q9967